=== PATIENT | female | born 1990 | race Caucasian/White ===

== ENCOUNTER 2017-02-04 19:50 | Emergency (ER) | payer BC ==
--- NOTE | 2017-02-05 10:18 | ER ---
ADMIT: 02/04/2017 RM/LOC: ER [facility] MR#: [id number] [address] [id number] ORTIZ VINCENT [address] [place] [address] Emergency Room Report SEX: F AGE: 26 : 1990 DATE: 02/04/2017 ADDENDUM: HISTORY OF PRESENT ILLNESS: This patient comes into the ER because she ate at [employer] and since then has had constant vomiting and diarrhea. She states she has cramping mostly when she is vomiting or having diarrhea and sometimes is having both at the same time. She urinated only once today and feels dehydrated. PHYSICAL EXAMINATION: THROAT: She has dry oral mucosa. ABDOMEN: Soft, and she has diffuse tenderness. No guarding or rebound tenderness. PLAN: IV of normal saline was started. She was given a liter of bolus with Zofran that did help relive her symptoms. I wrote a prescription for Zofran. She is to follow up with her primary tomorrow if not keeping fluids down. Please see my T-sheet. RYANN Cui / Po Wiggins MD / [email or web address] JOB #: [id number] CC: Po Wiggins MD, Attending Physician Cookie Horn MD, Family Physician
== END 2017-02-04 22:15 | disposition home or self-care (01) ==
LOC: ER 19:50
DX: R11.10 Vomiting, unspecified (principal); R19.7 Diarrhea, unspecified